=== PATIENT | female | born 1965 | race Caucasian/White ===

== ENCOUNTER 2021-04-29 16:54 | Emergency (ER) | payer BC ==
[2021-04-29 17:34] VITALS: BP 97/58; PULSE 60; TEMP 97.9; BMI 26.4
[2021-04-29] MEDS ORDERED: KETOROLAC TROMETHAMINE 30 MG/1 ML VIAL IM ONE (18:33)
[2021-04-29] MEDS ORDERED: KETOROLAC TROMETHAMINE 30 MG/1 ML VIAL ONE (18:36)
== END 2021-04-29 22:20 | disposition home or self-care (01) ==
LOC: JERFT 16:54
PROC: 3E0233Z Introduction of Anti-inflammatory into Muscle, Percutaneous Approach (ICD-10-PCS; principal; 2021-04-29)
DX: M25.551 Pain in right hip (principal); W01.0XXA Fall on same level from slipping, tripping and stumbling without subsequent striking against object, initial encounter
CPT/HCPCS: 73523-TC-FY; 73552-TC-RT-FY; 99284-25